=== PATIENT | female | born 1945 | race Caucasian/White ===

== ENCOUNTER 2022-11-06 14:59 | Outpatient (CLI) | payer MEDICARE, SELFPAY ==
--- NOTE | ~2022-11-06 | XR_ITS ---
EXAMINATION: XR chest 2V DATE: 11/06/2022 15:24 INDICATION: Lower limb edema, hypertension TECHNIQUE: PA and lateral views of the chest are obtained. COMPARISON: None available FINDINGS: There are small pleural effusions. There are minimal airspace opacities of the lung bases. No pneumothorax is identified. The cardiomediastinal silhouette is normal. There is severe thoracic s pondylosis. IMPRESSION: 1. Small pleural effusions. 2. Minimal bibasilar airspace opacities, likely atelectasis. Reviewed, dictated and finalized at location F.
== END 2022-11-06 15:00 | disposition home or self-care (01) ==
PROVIDERS: PCP Family Medicine; Visit Provider Nurse Practitioner Adult Health
DX: E11.9 Type 2 diabetes mellitus without complications (principal); I10 Essential (primary) hypertension; R60.9 Edema, unspecified; J90 Pleural effusion, not elsewhere classified; R91.8 Other nonspecific abnormal finding of lung field
CPT/HCPCS: 71046